=== PATIENT | male | born 1980 | race Caucasian/White ===

== ENCOUNTER 2020-01-26 05:57 | Emergency (ER) | payer MEDICARE, SELFPAY ==
[2020-01-26 05:58] VITALS: BP 177/99; PULSE 110; RESP 18; TEMP 35.9; O2SAT 98; BMI 34.4
[2020-01-26 06:03] VITALS: O2SAT 99
--- NOTE | 2020-01-26 06:09 | ED.VIS.URI ---
History of Present Illness Chief Complaint: Cough Informant: Patient Onset: Days - 2-3 Context: Gradual Onset Timing: Continuous Current Severity: Mild Maximum Severity: Mild Worsened by: - - smoking Relieved by: - - nothing Narrative: Patient has been coughing a little more than usual for couple days, he has a chronic smoker's cough, but this morning on his way to work he noticed that he lost his sense of taste and smell. He is concerned because he has had close contact with clients at work that have tested positive for COVID-19. He is concerned that he may have it. He has diet-controlled type 2 diabetes mellitus. He is healthy otherwise except for being a smoker. He works at the [employer] locally. He has had some arthralgias, malaise, but no fevers or chills, headaches, or dyspnea. No GI symptoms. - Past Medical History (1) Diet-controlled type 2 diabetes mellitus Status: Chronic Past Medical History - Allergies and Home Meds Allergies/Adverse Reactions: Allergies No Known Allergies Allergy (Verified 01/26/20 06:01) Primary Care Physician: NOT,DEFINED [Primary Care Provider] - Lives: With Family Smoking Status: Current every day smoker Review of Systems General: Reports: Malaise. Denies: Chills, Fever, Sweats Eyes: Denies: Visual changes - bilaterally, Diplopia ENT: Reports: - - Loss of taste and smell. Denies: Bilateral ear pain, Rhinorrhea, Sore throat Cardiovascular: Denies: Chest pain, Palpitations Respiratory: Reports: Cough. Denies: Dyspnea, Sputum, Dyspnea on exertion Gastrointestinal: Denies: Abdominal pain, Nausea, Vomiting, Diarrhea, Melena, Hematochezia Genitourinary: Denies: Dysuria, Hematuria, Frequency Musculoskeletal: Reports: Arthralgias - Elbows, knees. Denies: Back pain, Swelling Skin: Denies: Rash, Wounds Neurological: Denies: Headache, Weakness, Numbness Physical Exam Vital Signs/Narrative: Vital Signs Temp Pulse Resp BP Pulse Ox 01/26/20 05:58 96.6 F L 110 H 18 177/99 H 98 Inital Vital Signs reviewed: Yes General: Well nourished, Well developed Head: Normocephalic, Atraumatic Eyes: Perrl, EOMI Nose: Normal Inspection, No Rhinorrhea Mouth/Throat: Airway Patent Neck: Supple, Nontender, No Lymphadenopathy Cardiovascular: Regular rate, Regular rhythm, No murmurs Respiratory: No distress, CTA bilaterally, Chest nontender Abdomen: Soft, Nontender, Nondistended, Normal bowel sounds Back: Nontender, Normal Inspection. Negative for: CVA tenderness Extremities: Nontender, No edema. Negative for: Calf Tenderness Skin: Normal color, No rash, No Trauma Neurological: Alert, Oriented x3, Cranial nerves II-XII grossly intact, Normal Strength, Normal Sensation, Normal Gait Psychological: Normal Mood, - - anxious Diagnostic/Tx/Re-eval - Medical Decision Making Patient is hypertensive but appears very anxious, his pulse ox is 100% on room air. He is well-appearing. He probably does have COVID-19. Sent an outpatient swab, instructions for looking it up, and quarantining at home, and given a work note. We discussed reasons to return he is comfortable with that plan. No steroids or oxygen indicated at this time. ED Disposition - Plan for ED Patient: Disposition: Home or Assisted Living Diagnosis: COVID-19 Instructions: ED Upper Resp Infec No Abx Tx Referrals: Doctor,Your [STAFF PHYSICIAN] - As Needed
== END 2020-01-26 06:44 | disposition home or self-care (01) ==
LOC: ED 06:33
PROVIDERS: Emergency Provider Emergency Medicine
DX: U07.1 COVID-19 (principal); E11.9 Type 2 diabetes mellitus without complications; F17.200 Nicotine dependence, unspecified, uncomplicated
CPT/HCPCS: 87635; 99282; U0003